=== PATIENT | female | born 1985 | race Caucasian/White ===

== ENCOUNTER 2016-06-01 12:26 | Outpatient (CLI) | payer BC, OTHER ==
[~2016-06-01] VITALS: Ht 165.1 cm; Wt 58.1 kg
[2016-06-01] MEDS ORDERED: VITAMIN C500 MG PO (13:27)
[2016-06-01] MEDS ORDERED: FERROUS SU325 MG/TAB PO (13:27)
== END 2016-06-01 15:10 | disposition home or self-care (01) ==
LOC: EUO 12:26
DX: E83.19 Other disorders of iron metabolism (principal)
CPT/HCPCS: J2916

== ENCOUNTER 2016-06-14 12:00 | Outpatient (RCR) | payer BC, OTHER ==
[2016-06-08 12:45] VITALS: BP 105/70; PULSE 77; TEMP 98.6
[2016-06-10 12:18] VITALS: BP 102/76; PULSE 74; TEMP 98
[~2016-06-14 12:00] MED LIST: FERROUS SU325 MG/TAB PO; VITAMIN C500 MG PO
[2016-06-14 12:56] VITALS: BP 103/68; PULSE 73; TEMP 98.3
== END 2016-06-14 13:30 | disposition home or self-care (01) ==
LOC: EUO 12:00
DX: E61.1 Iron deficiency (principal)
CPT/HCPCS: J2916

== ENCOUNTER 2017-07-23 09:34 | Outpatient (CLI) | payer OTHER ==
[~2017-07-23] VITALS: Ht 162.6 cm; Wt 71.8 kg
[2017-07-23 10:00] VITALS: BP 106/69; PULSE 94; TEMP 97.3
[2017-07-23 10:04] VITALS: BP 106/69; PULSE 94; TEMP 97.3
[2017-07-23] MEDS ORDERED: PRENATAL1 TA7 PO (10:10)
[2017-07-23 12:00] VITALS: BP 108/72; PULSE 85; TEMP 98.5
== END 2017-07-23 11:22 | disposition home or self-care (01) ==
LOC: LDRO 09:34 → LDR 10:10 → LDRO 11:22
DX: O62.9 Abnormality of forces of labor, unspecified (principal); Z3A.39 39 weeks gestation of pregnancy
CPT/HCPCS: OP; J7120

== ENCOUNTER 2017-07-23 19:36 | Inpatient (IN) | payer OTHER ==
[~2017-07-23] VITALS: Ht 160 cm; Wt 71.8 kg
[2017-07-23] VITALS (14 sets, daily range): BP systolic 96–118; BP diastolic 52–78; PULSE 77–104; TEMP 97.7–98.4
[~2017-07-23 19:36] MED LIST changes: +PRENATAL1 TA7 PO
[2017-07-23 20:27] LABS: BASO % 0.2 % (0.0-2.0); EOS # 0.1 (0.0-0.7); EOS % 0.9 % (0-4.0); GRAN # 9.1 (1.4-6.5); GRAN % 72.8 % (42.2-75.2); HEMATOCRIT 35.4 % (37.0-47.0); HEMOGLOBIN 12.4 g/dl (12.5-16.0); LYMPH # 2.1 (1.2-3.4); LYMPH % 17.1 % (20.0-51.0); MEAN CELL VOLUME 90 fl (80.0-100.0); MEAN CORPUSCULAR HEMOGLOBIN 32 pg (27.0-31.0); MEAN CORPUSCULAR HGB CONC 35 g/dl (33.0-37.0); MEAN PLATELET VOLUME 9.8 fl (7.4-10.4); PLATELET COUNT 174 K/mm3 (130-400); RED BLOOD COUNT 3.93 M/mm3 (4.10-5.30); REDCELL DISTRIBUTION WIDTH-CV 13.2 % (11.5-14.5)
[2017-07-24] VITALS (7 sets, daily range): BP systolic 94–102; BP diastolic 59–75; PULSE 68–88; TEMP 97.5–98.1
[2017-07-24 06:32] LABS: BASO % 0.3 % (0.0-2.0); EOS # 0.1 (0.0-0.7); EOS % 0.4 % (0-4.0); GRAN # 11.9 (1.4-6.5); GRAN % 79.5 % (42.2-75.2); LYMPH # 1.7 (1.2-3.4); MEAN CELL VOLUME 92 fl (80.0-100.0); MEAN CORPUSCULAR HGB CONC 33 g/dl (33.0-37.0); MONO # 1.2 (0.1-0.6); MONO % 8.1 % (1.7-9.3); PLATELET COUNT 155 K/mm3 (130-400); RED BLOOD COUNT 3.63 M/mm3 (4.10-5.30); REDCELL DISTRIBUTION WIDTH-CV 13.1 % (11.5-14.5)
[2017-07-24 06:33] LABS: HEMATOCRIT 33.2 % (37.0-47.0); HEMOGLOBIN 11.1 g/dl (12.5-16.0); MEAN CORPUSCULAR HEMOGLOBIN 31 pg (27.0-31.0)
[2017-07-25 11:04] VITALS: BP 99/78; PULSE 107
== END 2017-07-25 17:00 | disposition home or self-care (01) | DRG 766 ==
LOC: LDRO 19:36 → OB 20:14 → LDR 20:14 → OB 22:30
PROVIDERS: Obstetrics & Gynecology
PROC: 10D00Z1 Extraction of Products of Conception, Low, Open Approach (ICD-10-PCS; principal; 2017-07-23)
DX: O34.211 Maternal care for low transverse scar from previous cesarean delivery (principal); Z3A.39 39 weeks gestation of pregnancy; Z37.0 Single live birth
CPT/HCPCS: J0690; J1885; J2175; J2370; J2405; J2590; J3010; J7120

== ENCOUNTER → 2018-04-20 | Outpatient (CLI) | payer BC | LOC: COL.RAD 10:43 | DX: R10.9 Unspecified abdominal pain (principal) | CPT/HCPCS: Q9967 ==